=== PATIENT | female | born 1990 ===

== ENCOUNTER 2018-11-13 06:48 | Emergency (ER) | payer SELFPAY ==
--- NOTE | 2018-11-13 07:20 | Emergency Department Report ---
ED Neck Pain HPI Chief Complaint: Extremity Injury, Upper Stated Complaint: RT SHOULDER AND ARM PAIN Time Seen by Provider: 11/13/18 07:19 Duration: 2 Days Neck Pain Location: Trapezius Severity: mild Mechanism: Twist, Awkward Position Symptoms: Yes Pain with Movement, Yes Radiation to Right Upper Ext, No Radiation to Left Upper Ext, No Numbness, No Weakness, No Previous History Other History: Patient is a 28-year-old female who comes to the ER complaining of right trapezius muscle pain that occurred after lifting heavy products at work 2 days ago. There was no fall or other blunt trauma. Patient woke up this morning and had a component of torticollis. Patient is on no medicines. She has no prior medical history. ED Review of Systems ROS: Stated complaint: RT SHOULDER AND ARM PAIN Other details as noted in HPI Comment: All other systems reviewed and negative Constitutional: denies: chills Eyes: denies: eye pain ENT: denies: ear pain Respiratory: denies: orthopnea Cardiovascular: denies: palpitations Endocrine: denies: intolerance to cold Gastrointestinal: denies: nausea Genitourinary: denies: urgency Musculoskeletal: as per HPI Skin: denies: rash Neurological: denies: weakness Psychiatric: denies: anxiety Hematological/Lymphatic: denies: easy bleeding ED Past Medical Hx - Past Medical History Previous Medical History?: No - Surgical History Past Surgical History?: No - Social History Smoking Status: Never Smoker Substance Use Type: None - Medications Home Medications: Home Medications Medication Instructions Recorded Confirmed Last Taken Type Cyclobenzaprine [Flexeril] 10 mg PO TID PRN #10 tablet 11/13/18 Unknown Rx Neck Pain Exam - Exam General: Vital signs noted. No distress. Alert and acting appropriately. HEENT: No Facial Pain, No Scalp Tenderness, No Contusion, No Abrasion, No Laceration Neck Pain: Yes Right Trapezius Tenderness, Yes Pain with Rotation Right, Yes pain with R Lateral Flexion, No Midline Tenderness, No Right Paraspinal Tenderness, No Left Paraspinal Tenderness, No Left Trapezius Tenderness, No Pain with Rotation Left, No Pain with Extension, No Pain with Flexion, No Pain with L Lateral Flexion Chest: Yes Clear Lung Sounds, No Pain with Respirations Heart: Yes Regular, No Murmur Back: No Thoracic Tenderness, No Lumbar Tenderness Neuro: Yes Normal Reflexes, No Numbness, No Weakness, No Radicular Deficits ED Course Vital Signs 11/13/18 11/13/18 06:53 06:56 Temperature 98.0 F 98 F Pulse Rate 68 72 Respiratory 16 18 Rate Blood Pressure 100/62 100/62 O2 Sat by Pulse 98 99 Oximetry ED Medical Decision Making - Medical Decision Making muscle spasm after lifting educated on proper body mechanics dc home with rx for flexeril and follow up with pcp Critical care attestation.: If time is entered above; I have spent that time in minutes in the direct care of this critically ill patient, excluding procedure time. ED Disposition Clinical Impression: Muscle spasm, Torticollis Disposition: DC-01 TO HOME OR SELFCARE Is pt being admited?: No Does the pt Need Aspirin: No Condition: Stable Instructions: Spasmodic Torticollis (ED), Muscle Spasm (ED) Additional Instructions: warm compresses meds as ordered today follow up with pcp referral below Prescriptions: Cyclobenzaprine [Flexeril] 10 mg PO TID PRN #10 tablet PRN Reason: Muscle Spasm Referrals: [facility] [Outside] - 3-5 Days Time of Disposition: 07:19
[2018-11-13 07:42] VITALS: BP 108/62
== END 2018-11-13 07:40 | disposition home or self-care (01) ==
LOC: ED 06:48
DX: M43.6 Torticollis (principal); M62.838 Other muscle spasm
CPT/HCPCS: 99282